=== PATIENT | female | born 1960 | race Caucasian/White ===

== ENCOUNTER 2023-05-12 01:29 | Inpatient (IN) | payer OTHER, SELFPAY ==
[2023-05-12] VITALS (8 sets, daily range): BP systolic 108–132; BP diastolic 67–81; PULSE 63–82; RESP 15–16; TEMP 36.4–36.9; O2SAT 99–100; BMI 17.0
--- NOTE | ~2023-05-12 | XR_ITS ---
EXAMINATION: XR sm bowel follow through WS DATE: 05/12/2023 10:57 INDICATION: Crohn's disease presenting with 2 short segments of enteroenteric intussusception in the left upper quadrant TECHNIQUE: Scrap Preparation Supervisor radiograph(s) of the abdomen was/were obtained. Water-soluble oral contrast was admi nistered, and sequential radiographs of the abdomen were obtained until oral contrast was noted to be in the proximal colon. Spot fluoroscopic images of the small bowel were obtained. Fluoroscopy exposu re time was 1.0 minutes. A total of 5 overhead radiographs and 16 fluoroscopic images were recorded. Total DAP was 15.405 Gycm^2 COMPARISON: None. FINDINGS: Scrap Preparation Supervisor radiograph demonstrates no dilated loops of gas-filled bowel to suggest obstruction. There is e xcreted contrast within the bladder likely related to reported earlier outside institution CT study. Transit time from the stomach to proximal colon was between 60-90 minutes. There is normal caliber an d mucosal fold pattern throughout the small bowel. No evident small bowel intussusception. Terminal i leum is unremarkable. No tethering or abnormal mass effect observed upon the small bowel with real-t aundrea fluoroscopy. IMPRESSION: 1. Normal small bowel follow-through with no evident small bowel intussusception or obstruction. Reviewed, dictated and finalized at location A. ATOLOGY TEACHER IMPRESSION: 1. Normal small bowel follow-through with no evident small bowel intussusceptio n or obstruction.
--- NOTE | ~2023-05-12 | CT_ITS ---
EXAMINATION: CT abdomen pelvis w con INDICATION: Outside hospital CT demonstrating intussusception TECHNIQUE: Computed tomographic images of the abdomen and pelvis were obtained after the administrati on of 99 cc of Omnipaque 350 intravenous contrast. The dose-length product (DLP) was 259.47 mGy-cm. A utomated exposure control and iterative reconstruction technique were employed. COMPARISON: Outside hospital CT dated 05/11/2023 FINDINGS: Minimal dependent atelectasis is present in the lung bases. The heart size is normal. There is an 8 mm cyst in the left hepatic lobe. The spleen, pancreas, and adrenal glands are normal. Hyper density in the otherwise normal gallbladder is consistent with excreted contrast from recent CT. Hypo attenuating lesions in the kidneys, measuring up to 4 mm on the right, are too small to characterize but likely represent cysts. There is calcified atherosclerosis of the aorta and many of the other art eries. No pathologically enlarged abdominal or pelvic lymph nodes are identified. No free intraperito deann gas or evidence of bowel obstruction. There is a small volume of pelvic ascites. Enteric contras t from yesterday's small bowel follow-through is noted in the colon. There are no dilated loops of cj wel. No persistent intussusception is identified. There is wall thickening of the terminal ileum Ther e is severe lumbar spondylosis. IMPRESSION: 1. No persistent intussusception identified. No obstruction 2. Wall thickening of the terminal ileum, consistent with terminal ileitis. 3. Small volume of pelvic ascites. Reviewed, dictated and finalized at location A. ET TURNER
--- NOTE | 2023-05-12 00:49 | ADMGEN ---
This patient, Nicolle Jones, was admitted to 2 Medical Room 260-01. Patient/family oriented to hospital policies and general routines including ID bracelet, bed and alarms, visiting hours, pain management, procedures, bathroom and other care routines, personal items, smoking policy, room service/diet, and visiting hours. Information on how to activate the Rapid Response Team has been discussed. Patient/Family are encouraged to report perceived risks to care and to ask questions if they do not understand what they are told or what they should do.
--- NOTE | 2023-05-12 01:06 | PM.IMHP ---
H&P: HPI History of Present Illness Date/Time: 05/12/23 01:06 Chief Complaint: Patient transferred from [facility] emergency room with enteroenteric intussusception in the left upper quadrant Narrative: She is a pleasant lady who is complaining of severe abdominal pain for the last 36 hours, that started at 4:00 p.m. on 05/10/2023. She rates the pain as 10/10 associated with nausea vomiting and diarrhea. She says that she cannot even take water down not to mention any food! She has history of stomach issues in the past and was told this is because of for anxiety. There are times where she goes days without eating because she feels that she can not, but at no point she had pain as worse as this one! Workup was done in the ER which showed 2 short segments of enteroenteric intussusception in the left upper quadrant and findings consistent with a chronic inflammatory bowel disease such as Crohn's Disease. General surgery was the consulted by the transferring ER, who accepted the patient as direct admit to evaluate in the morning for possible surgical intervention in OR. Review of Systems Review of Systems: She denies any chest pain, palpitations, loss of consciousness. Please see H&P as above All systems reviewed & are unremarkable except as noted in HPI and below PMFSH Past Medical History Medical History History of follicular lymphoma 2009 Surgical History Surgical History History of appendectomy History of section Family History Family History Father Hypertension Heart disease Diabetes mellitus Mother Depression Heart disease Thyroid disorder Hypertension Sibling Depression Thyroid disorder Social History Social History Years smoked: 40 Smoking status: Former smoker Second hand tobacco smoke exposure: No Smoking end date: 06/19/19 Alcohol intake: current Drinks per week: 4 Substance use: current Substance use type: marijuana Other substance usage details: daily use Last use: 05/11/23 Lack of Transportation: No Lack of Food: Never True Current Housing: I Have Housing Concerned About Future Housing: No Difficulty Paying Gas/Electric Bills: YES Difficulty Paying for Meds: No Currently Unemployed: No Education: High School Diploma/GED Difficulty w/ Childcare or Family Care: No Living arrangements: with family Occupation/Education: unemployed Gender identity (if verbalized by the patient): Female Sexual Orientation (if Verbalized by the Patient): Straight or Heterosexual Spiritual care concerns: No Agree to blood products: Yes Meds Home Medications and Allergies Home Medications Medication Instructions Recorded Confirmed Type buspirone 10 mg tablet 10 mg PO BID #60 tabs 10/26/22 05/12/23 Rx medroxyprogesterone 2.5 mg tablet 2.5 mg PO DAILY #90 tabs 10/26/22 05/12/23 Rx estradiol 1 mg tablet 1 mg PO DAILY #90 tabs 12/13/22 05/12/23 Rx bupropion HCl 200 mg tablet,12 hr 200 mg PO BID #180 tabs 01/02/23 05/12/23 Rx sustained-release (Wellbutrin SR) pantoprazole 40 mg tablet,delayed 40 mg PO BID #180 tabs 01/05/23 05/12/23 Rx release pentazocine 50 mg-naloxone 0.5 mg 1 tablet PO Q4-6H PRN pain #120 01/11/23 05/12/23 Rx tablet tabs cyclobenzaprine 10 mg tablet 10 mg PO TID PRN muscle spasm #60 01/26/23 05/12/23 Rx tabs lorazepam 0.5 mg tablet 0.5 mg PO BID PRN anxiety #60 tabs 02/02/23 05/12/23 Rx indomethacin 50 mg capsule 50 mg PO TID #270 caps 02/06/23 05/12/23 Rx topiramate 50 mg tablet 25 mg PO BID #30 tabs 02/22/23 05/12/23 Rx ondansetron 4 mg disintegrating 4 mg PO Q6H PRN nausea and 03/15/23 05/12/23 Rx tablet vomiting #270 tabs butorphanol 10 mg/mL nasal spray 1 spray intranasal TID PRN pain #5 04/21/2305/12
[2023-05-12] MEDS: HYDROmorphone HCL INJ (*CRX) 1 MG/ML SYR 0.5 MG IV PUSH ×5 (02:04→20:33)
[2023-05-12] MEDS: DEXTROSE 5%/0.45% SOD CHL 1,000 ML 100 ML IV CONT ×2 (02:04→12:32)
--- NOTE | 2023-05-12 04:06 | PHAR ---
HOME MED VERIFIED TRAZODONE 150MG HS
[2023-05-12] MEDS: PIPERACILLIN/TAZ 2.25G/NS 50ML 2.25 GM/50 ML BAG IVPB ×2 (05:31→11:03)
[2023-05-12 06:11] LABS: Basophils Absolute Auto 0.1 K/mm3 (0.0-0.1); Basophils Percent Auto 0.7 % (0.2-1.2); Eosinophils Absolute Auto 0.1 K/mm3 (0-0.3); Eosinophils Percent Auto 1.9 % (0-4.4); Hematocrit 33.3 % (37.0-47.0); Hemoglobin 10.7 g/dL (12.0-15.0); Immature Granulocyte Absolute 0.02 K/mm3 (0.00-0.031); Immature Granulocyte Percent A 0.3 % (0-0.5); Lymphocytes Absolute Auto 3.04 K/mm3 (0.9-3.2); Lymphocytes Percent Auto 42.3 % (18.3-44.2); Mean Corpuscular HGB Conc 32.1 g/dl (32-36); Mean Corpuscular Hemoglobin 32.5 pg (26-34); Mean Corpuscular Volume 101.2 fl (80-100); Monocytes Absolute Auto 0.6 K/mm3 (0.1-0.6); Monocytes Percent Auto 8.6 % (2.6-8.5); Neutrophils Absolute Auto 3.3 K/mm3 (1.3-6.7); Neutrophils Percent Auto 46.2 % (45.5-73.1); Platelet Count Result 205 k/mm3 (150-375); Red Blood Count 3.29 M/mm3 (4.2-5.4); Red Cell Distribution Width 14.2 % (11.5-14.5); White Blood Count 7.2 K/mm3 (4.5-10.0)
[2023-05-12 06:25] LABS: Alanine Aminotransferase 12 U/L (6-35); Albumin Level 3.2 g/dL (3.5-5.1); Alkaline Phosphatase 44 U/L (38-126); Anion Gap 5 mmol/L (8-16); Aspartate Amino Transferase 24 U/L (14-36); Bilirubin,Total 0.5 mg/dL (0.2-1.3); Blood Urea Nitrogen 8 mg/dL (7-17); Calcium 7.8 mg/dL (8.4-10.2); Carbon Dioxide 26 mmol/L (22-30); Chloride 109 mmol/L (98-107); Estimated CRCL calculation 39 ml/min; Estimated Glomerular Filt Rate > 60; Glucose 72 mg/dL (65-110); Magnesium 1.8 mg/dL (1.6-2.3); Phosphorus 3.4 mg/dL (2.5-4.5); Potassium 3.7 mmol/L (3.4-5.0); Sodium 140 mmol/L (137-145)
--- NOTE | 2023-05-12 08:05 | WPDGICN ---
Assessment and Plan Assessment and plan (1) Intussusception of jejunum: Code(s): K56.1 - Intussusception Status: Acute Assessment and Plan: noted CT scan pain has improved today surgery will assess patient CT scan raising possibility of Crohn's, she has been diagnosed with IBS but never had symptoms like this. Will need to get colonoscopy but after symptomatically better, in the meantime will get crp, esr and stool calprotectin, also stool studies (h/o diarrhea) will get SBFT no GI coverage this weekend, will be back Monday (2) Sudden onset of severe abdominal pain: Code(s): R10.9 - Unspecified abdominal pain Status: Acute Assessment and Plan: improved npo surgery to assess (3) Nausea vomiting and diarrhea: Code(s): R11.2 - Nausea with vomiting, unspecified; R19.7 - Diarrhea, unspecified Status: Acute (4) Abnormal CT scan, small bowel: Code(s): R93.3 - Abnormal findings on diagnostic imaging of other parts of digestive tract Status: Acute Assessment and Plan: colonoscopy in near future GI Consult Note Consult date/time: 05/12/23 08:05 Reason for consult: n/v, diarrhea, abdominal pain, abnormal SB in CT scan HPI: Nicolle Jones is a 63 year old female with history of anxiety and possible IBS - says that PCP started on psych meds for anxiety and after having upset stomach, possible IBS with history of constipation and loose stools - remembers having normal EGD but never had colonoscopy. She is here with new onset of severe abdominal pain started about 2 days ago, pain was 10/10? associated with nausea vomiting and diarrhea, yesterday had 4 loose stools. She went to another ER, CT scan reviewed and showed mode circumferential bowel thickening of small and large bowel with some interval sparing ? Crohn's, also short segments of enteroenteric intussusception in the left upper quadrant. No BM since yesterday, no more emesis and overall feeling better. Today with headache (it is not unusual for her), labs normal liver enzymes, normal h/h and platelets, wbc 12k, received abx. No sick contact. Review of Systems Constitutional: Constitutional: Denies chills Eyes: Eyes: Denies blurry vision ENT: Reports Normal hearing present Cardiovascular: Cardiovascular: Denies chest pain Respiratory: Respiratory: Denies cough Gastrointestinal: Gastrointestinal: Reports abdominal pain, Reports diarrhea, Reports nausea and Reports vomiting Genitourinary: Genitourinary: Denies hematuria Musculoskeletal: Musculoskeletal: Denies neck pain Integumentary/Breasts: Skin/Breast: Denies rash Neurologic: Denies Abnormal speech present Psychiatric: Psychiatric: Denies confusion [facility] Past Medical History Medical History (Updated 05/12/23 @ 08:11 by Antony Penaloza MD) Abnormal CT scan, small bowel History of follicular lymphoma 2010 Surgical History Surgical History History of appendectomy History of section Family History Family History Father Hypertension Heart disease Diabetes mellitus Mother Depression Heart disease Thyroid disorder Hypertension Sibling Depression Thyroid disorder Social History Social History Years smoked: 40 Smoking status: Former smoker Second hand tobacco smoke exposure: No Smoking end date: 06/19/19 Alcohol intake: current Drinks per week: 4 Substance use: current Substance use type: marijuana Other substance usage details: daily use Last use: 05/11/23 Lack of Transportation: No Lack of Food: Never True Current Housing: I Have Housing Concerned About Future Housing: No Difficulty Paying Gas/Electric Bills: YES Difficulty Paying for Meds: No Currently Unemployed: No Education: High School Diploma/GED
[2023-05-12] MEDS: ONDANSETRON INJ 4 MG/2 ML VIAL IV PUSH ×2 (09:43→20:33)
[2023-05-12 11:39] LABS: Appearance Urine Clear (Clear); Bacteria Urine None Seen /hpf; Bilirubin Urine Negative (Negative); Blood Urine Negative (Negative); Color Urine Yellow (Yellow); Glucose Urine UA Negative (Negative); Ketones Urine Negative (Negative); Leukocyte Esterase Ur 1+ LEU/UL (NEGATIVE); Need Manual Microscopic Reviewed; Nitrate Urine Positive (Negative); Non Pathogenic Casts 0-2; Protein Urine Negative (Negative); RBC Urine 0-2 /hpf (0-2); Squamous Epithelial Cell Urine None seen /hpf (Few); Urobilinogen Urine 0.2 mg/dL (<2.0)
[2023-05-12 11:40] LABS: Add Urine Microscopic? YES
[2023-05-12 13:31] LABS: Toxigenic C. Diff NEGATIVE (NEGATIVE)
--- NOTE | 2023-05-12 15:46 | PM.CNGS ---
Assessment and Plan Assessment and plan (1) Sudden onset of severe abdominal pain: Code(s): R10.9 - Unspecified abdominal pain Status: Acute Assessment and Plan: Much improved and patient wanting to take some soft food. She still is taking some hydromorphone as well. I advised her to avoid this and try taking Tylenol or ibuprofen. CT scan outside hospital suggested small-bowel intussusception as well as distal ileal and proximal colonic inflammatory change with skip areas suggestive of Crohn's disease. Small-bowel follow-through today was normal. Will plan on getting follow-up CT scan with contrast again tomorrow. (2) Abnormal CT scan, small bowel: Code(s): R93.3 - Abnormal findings on diagnostic imaging of other parts of digestive tract Status: Acute Assessment and Plan: See above. Suggests intussusception and Crohn's disease. Dr. Underwood recommends outpatient colonoscopy. She has had an EGD fairly recently. (3) Generalized anxiety disorder: Code(s): F41.1 - Generalized anxiety disorder Status: Chronic Assessment and Plan: Continue home medication (4) Major depressive disorder, recurrent, moderate: Code(s): F33.1 - Major depressive disorder, recurrent, moderate Status: Chronic Assessment and Plan: Continue home medications History of Present Illness Consult details Consult date: 05/12/23 (Patient seen about 3:00 p.m. on 05/12/2023.) Reason for consult: abdominal pain (CT scan outside hospital suggested circumferential inflammation of distal small bowel and proximal colon with skip areas, couple of areas of small intestinal intussusception were also seen. Patient transferred here from outside hospital ER due to severe abdominal pain and no general surgery OSH.) Requesting physician: Dain Renteria MD Narrative: Patient is a 63-year-old woman who has had episodes of abdominal pain for quite some time. She has been told that she has irritable bowel syndrome. She does note that she has had alternating constipation and diarrhea for quite some time too. About 4:00 p.m. on , 05/10/2023, she began experiencing upper abdominal pain. This became worse and moved to the right lower quadrant. She did have some vomiting with this. Eventually the pain was excruciating and she could not keep any thing down. She went to the emergency room in [place]. [place] was [place] [id number]. She was having severe abdominal pain and vomiting. Her exam showed right upper quadrant and epigastric tenderness. Her CT scan was suspicious for distal ileal and possibly colonic Crohn's disease. It was also noted that she had a couple areas in the mid jejunum where intussusception was noted. Her gallbladder was distended but was not consistent with cholecystitis. She transferred to [facility] and received IV fluids and hydromorphone for pain medicine. Her pain markedly improved and by this morning it was much better. Her white blood cell count improved and was only 7000 this morning. She was seen by Dr. Underwood, car spotter, and a water-soluble small bowel follow-through was ordered. Clostridium difficile toxin titer was ordered and was negative. Some markers of inflammation were ordered as well and are pending. She went on to have the small-bowel series today. This was normal. There was transit into the colon by 90 minutes. There was no small bowel dilatation. No sign of obstruction or intussusception was seen. She tells me this afternoon that she is feeling much better but is still taking some hydromorphone p.r.n. for pain of the abdomen. She is seen now in consultation. She has already tried some liquids but did not like the taste. She would like to try soft food. Review of Systems Review of Systems: All systems reviewed & are unremarkable except as noted in HPI and below (HPI and those items noted below) Joseluis
[2023-05-12] MEDS: INDOMETHACIN 25 MG CAPSULE 50 MG PO (17:20)
[2023-05-12] MEDS: busPIRone HCL 10 MG TABLET PO (17:20)
--- NOTE | 2023-05-12 18:44 | PM.IMPN ---
Progress Note: A&P Assessment and Plan (1) Abnormal CT scan, small bowel: Code(s): R93.3 - Abnormal findings on diagnostic imaging of other parts of digestive tract Status: Acute (2) Intussusception of jejunum: Code(s): K56.1 - Intussusception Status: Acute (3) Sudden onset of severe abdominal pain: Code(s): R10.9 - Unspecified abdominal pain Status: Acute (4) Nausea vomiting and diarrhea: Code(s): R11.2 - Nausea with vomiting, unspecified; R19.7 - Diarrhea, unspecified Status: Acute (5) Abnormal computed tomography angiography (CTA) of abdomen: Code(s): R93.5 - Abnormal findings on diagnostic imaging of other abdominal regions, including retroperitoneum Status: Acute (6) Chronic inflammatory small bowel disease: Code(s): K52.9 - Noninfective gastroenteritis and colitis, unspecified Status: Acute (7) Leukocytosis: Code(s): D72.829 - Elevated white blood cell count, unspecified Status: Acute (8) Generalized anxiety disorder: Code(s): F41.1 - Generalized anxiety disorder Status: Chronic (9) Gastro-esophageal reflux disease without esophagitis: Code(s): K21.9 - Gastro-esophageal reflux disease without esophagitis Status: Acute (10) Major depressive disorder, recurrent, moderate: Code(s): F33.1 - Major depressive disorder, recurrent, moderate Status: Chronic Plan 1. Intussusception Resolved. Appreciate general surgery consultation from Dr. Arvizu and GI consultation from Dr. Underwood small bowel xr follow through negative for obstruction ctap with contrast for keerthi. am (presumably po contrast as well)- pt is npo for this pt now tolerating low fiber low residue diet potential for dc after study if negative zosyn has been discontinued 2. IBD vs irritable bowel disease vs infectious colitis Appreciate workup from GI f/u stool calprotectin, stool cx, c diff, crp/esr f/u ct ap with con tomorrow colonoscopy in near future per GI ct prn pain meds for abd pain potentially can f/u outpt for studies. If no GI coverage over the weekend, should f/u outpt if symptomatically better. 3. Electrolyte abnormalities ca gluconate for ca repletion Resume home meds after CT AP study and/or after consultation with GI and general surgery Time Spent With Patient Time: 45 min Subjective Date/time seen: 05/12/23 18:44 Interval history: pt upset that nothing has been explained to her. otherwise says pain has mostly resolved. Exam Const: General: cooperative, comfortable, no acute distress, alert, awake and tired appearing Nutritional Appearance: underweight Orientation/consciousness: patient oriented x3 and No confusion HENMT: Head: normocephalic and atraumatic Mouth: Yes Normal oral and palatal mucosa present Eyes: Conjunctivae: conjunctivae normal Pupils: Equal, round and reactive pupils present EOM: EOMs intact bilaterally Neck: Neck: normal visual inspection, no lymphadenopathy and nontender Resp: Effort & Inspection: normal respiratory effort Auscultation: clear to auscultation bilaterally Cardio: Rate: regular rate Rhythm: regular rhythm Heart sounds: no gallops, no murmurs and no rubs GI: Inspection: non-distended, scaphoid and scar GI Palp: Yes Soft to palpation, Yes Tenderness to palpation present (GI) (Minimal tenderness, mostly lower abdomen.), No Guarding due to palpation present (GI), No Hepatosplenomegaly present, No Hepatomegaly present, No Splenomegaly present, No Hernia present, No Palpable mass present and No Rebound tenderness present Auscultation: normoactive bowel sounds Skin: Lesions: no lesions Rashes: no rashes Neuro: General: no focal motor deficits and CN's II-XI intact bilaterally Cranial nerves: Yes Equal, round and reactive pupils present, Yes Bilaterally intact EOM present, Yes facial symmetry and Yes Midline tongue present Speech: normal speech Motor exam (neuro): 55
[2023-05-12] MEDS: CALCIUM GLUC 2,000 MG/NS 100ML 2,000 MG/100 ML BAG 100 MG IVPB (18:51)
[2023-05-12] MEDS: traZODone HCL 50 MG TABLET 150 MG PO (20:33)
[2023-05-12] MEDS: buPROPion HCL SR (12HR) 100 MG TABCR 200 MG PO (20:33)
[2023-05-12] MEDS: TOPIRAMATE 25 MG TABLET PO (20:34)
[2023-05-12] MEDS: PANTOPRAZOLE 40 MG TABLET PO (20:34)
[2023-05-13] VITALS (9 sets, daily range): BP systolic 125–154; BP diastolic 70–88; PULSE 59–72; RESP 14–16; TEMP 36.2–36.7; O2SAT 100
[2023-05-13] MEDS: ONDANSETRON INJ 4 MG/2 ML VIAL IV PUSH ×2 (02:42→13:27)
[2023-05-13] MEDS: DEXTROSE 5%/0.45% SOD CHL 1,000 ML 100 ML IV CONT ×2 (02:42→12:20)
[2023-05-13] MEDS: LEVOTHYROXINE SODIUM 125 MCG TABLET PO (05:58)
[2023-05-13 06:13] LABS: Basophils Percent Auto 0.7 % (0.2-1.2); Eosinophils Absolute Auto 0.1 K/mm3 (0-0.3); Eosinophils Percent Auto 2.3 % (0-4.4); Hematocrit 30.4 % (37.0-47.0); Immature Granulocyte Absolute 0.01 K/mm3 (0.00-0.031); Immature Granulocyte Percent A 0.2 % (0-0.5); Lymphocytes Absolute Auto 2.13 K/mm3 (0.9-3.2); Lymphocytes Percent Auto 37.4 % (18.3-44.2); Mean Corpuscular HGB Conc 32.9 g/dl (32-36); Mean Corpuscular Hemoglobin 32.1 pg (26-34); Mean Corpuscular Volume 97.4 fl (80-100); Monocytes Absolute Auto 0.5 K/mm3 (0.1-0.6); Monocytes Percent Auto 7.9 % (2.6-8.5); Neutrophils Absolute Auto 2.9 K/mm3 (1.3-6.7); Neutrophils Percent Auto 51.5 % (45.5-73.1); Platelet Count Result 190 k/mm3 (150-375); Red Blood Count 3.12 M/mm3 (4.2-5.4); Red Cell Distribution Width 13.6 % (11.5-14.5); White Blood Count 5.7 K/mm3 (4.5-10.0)
[2023-05-13 06:23] LABS: Anion Gap 5 mmol/L (8-16); Blood Urea Nitrogen 3 mg/dL (7-17); CRP 3.6 mg/dL (<1.0); Calcium 8.5 mg/dL (8.4-10.2); Carbon Dioxide 24 mmol/L (22-30); Chloride 110 mmol/L (98-107); Estimated CRCL calculation 50 ml/min; Estimated Glomerular Filt Rate > 60; Glucose 101 mg/dL (65-110); Potassium 3.3 mmol/L (3.4-5.0); Sodium 139 mmol/L (137-145)
[2023-05-13 07:15] LABS: Erythrocyte Sedimentation Rate 18 mm/hr (0-20)
[2023-05-13] MEDS: MIRTAZAPINE 30 MG TABLET PO (08:20)
[2023-05-13] MEDS: INDOMETHACIN 25 MG CAPSULE 50 MG PO ×3 (08:20→17:05)
[2023-05-13] MEDS: PANTOPRAZOLE 40 MG TABLET PO ×2 (08:21→20:30)
[2023-05-13] MEDS: TOPIRAMATE 25 MG TABLET PO ×2 (08:21→20:30)
[2023-05-13] MEDS: buPROPion HCL SR (12HR) 100 MG TABCR 200 MG PO ×2 (08:21→20:30)
[2023-05-13] MEDS: estradioL 1 MG TABLET PO (08:21)
[2023-05-13] MEDS: busPIRone HCL 10 MG TABLET PO ×2 (08:21→17:05)
[2023-05-13] MEDS: HYDROmorphone HCL INJ (*CRX) 1 MG/ML SYR 0.5 MG IV PUSH ×2 (13:27→18:15)
--- NOTE | 2023-05-13 17:49 | PM.IMPN ---
Progress Note: A&P Assessment and Plan (1) Abnormal CT scan, small bowel: Code(s): R93.3 - Abnormal findings on diagnostic imaging of other parts of digestive tract Status: Acute (2) Intussusception of jejunum: Code(s): K56.1 - Intussusception Status: Acute (3) Sudden onset of severe abdominal pain: Code(s): R10.9 - Unspecified abdominal pain Status: Acute (4) Nausea vomiting and diarrhea: Code(s): R11.2 - Nausea with vomiting, unspecified; R19.7 - Diarrhea, unspecified Status: Acute (5) Abnormal computed tomography angiography (CTA) of abdomen: Code(s): R93.5 - Abnormal findings on diagnostic imaging of other abdominal regions, including retroperitoneum Status: Acute (6) Chronic inflammatory small bowel disease: Code(s): K52.9 - Noninfective gastroenteritis and colitis, unspecified Status: Acute (7) Leukocytosis: Code(s): D72.829 - Elevated white blood cell count, unspecified Status: Acute (8) Generalized anxiety disorder: Code(s): F41.1 - Generalized anxiety disorder Status: Chronic (9) Gastro-esophageal reflux disease without esophagitis: Code(s): K21.9 - Gastro-esophageal reflux disease without esophagitis Status: Acute (10) Major depressive disorder, recurrent, moderate: Code(s): F33.1 - Major depressive disorder, recurrent, moderate Status: Chronic Plan 1. Intussusception Resolved. Appreciate general surgery consultation from Dr. Arvizu and GI consultation from Dr. Underwood small bowel xr follow through negative for obstruction ctap with contrast for keerthi. am (presumably po contrast as well)- pt is npo for this pt now tolerating low fiber low residue diet potential for dc after study if negative zosyn has been discontinued 2. IBD vs irritable bowel disease vs infectious colitis Appreciate workup from GI f/u stool calprotectin, stool cx, c diff, crp/esr f/u ct ap with con tomorrow colonoscopy in near future per GI ct prn pain meds for abd pain potentially can f/u outpt for studies. If no GI coverage over the weekend, should f/u outpt if symptomatically better. 05/13: Terminal ileitis seen on CT a/p. Discussed pt with Dr. Arvizu from general surgery. He recommends pt is seen by GI on Monday. I will make pt npo on Monday in case she has a colonoscopy with biopsy on Monday. Ct iv dilaudid for abd pain. I let pt know she cannot go home on this. 3. Electrolyte abnormalities ca gluconate for ca repletion Resume home meds after CT AP study and/or after consultation with GI and general surgery Time Spent With Patient Time: 45 min Subjective Date/time seen: 05/13/23 17:49 Interval history: pt is complaining of abd pain, and dark colored stool despite not eating anything. requesting iv dilaudid for abd pain. Exam Const: General: cooperative, comfortable, no acute distress, alert, awake and tired appearing Nutritional Appearance: underweight Orientation/consciousness: patient oriented x3 and No confusion HENMT: Head: normocephalic and atraumatic Mouth: Yes Normal oral and palatal mucosa present Eyes: Conjunctivae: conjunctivae normal Pupils: Equal, round and reactive pupils present EOM: EOMs intact bilaterally Neck: Neck: normal visual inspection, no lymphadenopathy and nontender Resp: Effort & Inspection: normal respiratory effort Auscultation: clear to auscultation bilaterally Cardio: Rate: regular rate Rhythm: regular rhythm Heart sounds: no gallops, no murmurs and no rubs GI: Inspection: non-distended, scaphoid and scar GI Palp: Yes Soft to palpation, Yes Tenderness to palpation present (GI) (Minimal tenderness, mostly lower abdomen.), No Guarding due to palpation present (GI), No Hepatosplenomegaly present, No Hepatomegaly present, No Splenomegaly present, No Hernia present, No Palpable mass present and No Rebound tenderness present Auscultation: normoactive bowel sounds Skin:
[2023-05-13] MEDS: POTASSIUM CHLORIDE 20 MEQ ER TABLET 40 MEQ PO (18:10)
[2023-05-13] MEDS: MAGNESIUM SULF 1 GM/D5W 100 ML 1 GM/100 ML BAG IVPB (18:10)
[2023-05-13] MEDS: traZODone HCL 50 MG TABLET 150 MG PO (20:30)
[2023-05-14] VITALS (8 sets, daily range): BP systolic 108–158; BP diastolic 68–87; PULSE 57–100; RESP 16–18; TEMP 36.3–37; O2SAT 98–100
[2023-05-14] MEDS: ONDANSETRON INJ 4 MG/2 ML VIAL IV PUSH ×3 (02:49→23:23)
[2023-05-14] MEDS: HYDROmorphone HCL INJ (*CRX) 1 MG/ML SYR 0.5 MG IV PUSH ×2 (02:50→14:16)
[2023-05-14] MEDS: LEVOTHYROXINE SODIUM 125 MCG TABLET PO (06:35)
[2023-05-14 06:54] LABS: Basophils Percent Auto 0.6 % (0.2-1.2); Eosinophils Absolute Auto 0.2 K/mm3 (0-0.3); Eosinophils Percent Auto 2.9 % (0-4.4); Hematocrit 31.4 % (37.0-47.0); Hemoglobin 10.5 g/dL (12.0-15.0); Immature Granulocyte Absolute 0.01 K/mm3 (0.00-0.031); Immature Granulocyte Percent A 0.2 % (0-0.5); Lymphocytes Absolute Auto 2.46 K/mm3 (0.9-3.2); Lymphocytes Percent Auto 48.1 % (18.3-44.2); Mean Corpuscular HGB Conc 33.4 g/dl (32-36); Mean Corpuscular Hemoglobin 32.3 pg (26-34); Mean Corpuscular Volume 96.6 fl (80-100); Mean Platelet Volume 9.9 fl (7.4-10.4); Monocytes Absolute Auto 0.4 K/mm3 (0.1-0.6); Neutrophils Absolute Auto 2.1 K/mm3 (1.3-6.7); Neutrophils Percent Auto 40.2 % (45.5-73.1); Platelet Count Result 209 k/mm3 (150-375); Red Blood Count 3.25 M/mm3 (4.2-5.4); Red Cell Distribution Width 13.2 % (11.5-14.5); White Blood Count 5.1 K/mm3 (4.5-10.0)
[2023-05-14 07:03] LABS: Anion Gap 6 mmol/L (8-16); Blood Urea Nitrogen 2 mg/dL (7-17); Calcium 8.6 mg/dL (8.4-10.2); Carbon Dioxide 26 mmol/L (22-30); Chloride 109 mmol/L (98-107); Estimated CRCL calculation 50 ml/min; Estimated Glomerular Filt Rate > 60; Glucose 80 mg/dL (65-110); Magnesium 1.8 mg/dL (1.6-2.3); Potassium 3.7 mmol/L (3.4-5.0); Sodium 141 mmol/L (137-145)
[2023-05-14] MEDS: TOPIRAMATE 25 MG TABLET PO ×2 (09:08→20:36)
[2023-05-14] MEDS: INDOMETHACIN 25 MG CAPSULE 50 MG PO ×3 (09:08→17:06)
[2023-05-14] MEDS: busPIRone HCL 10 MG TABLET PO ×2 (09:08→17:07)
[2023-05-14] MEDS: PANTOPRAZOLE 40 MG TABLET PO ×2 (09:08→20:36)
[2023-05-14] MEDS: buPROPion HCL SR (12HR) 100 MG TABCR 200 MG PO ×2 (09:08→20:36)
[2023-05-14] MEDS: estradioL 1 MG TABLET PO (09:08)
[2023-05-14] MEDS: MIRTAZAPINE 30 MG TABLET PO (09:08)
[2023-05-14] MEDS: CYCLOBENZAPRINE HCL 10 MG TABLET PO (12:45)
--- NOTE | 2023-05-14 13:29 | PM.IMPN ---
Progress Note: A&P Assessment and Plan (1) Abnormal CT scan, small bowel: Code(s): R93.3 - Abnormal findings on diagnostic imaging of other parts of digestive tract Status: Acute (2) Intussusception of jejunum: Code(s): K56.1 - Intussusception Status: Acute (3) Sudden onset of severe abdominal pain: Code(s): R10.9 - Unspecified abdominal pain Status: Acute (4) Nausea vomiting and diarrhea: Code(s): R11.2 - Nausea with vomiting, unspecified; R19.7 - Diarrhea, unspecified Status: Acute (5) Abnormal computed tomography angiography (CTA) of abdomen: Code(s): R93.5 - Abnormal findings on diagnostic imaging of other abdominal regions, including retroperitoneum Status: Acute (6) Chronic inflammatory small bowel disease: Code(s): K52.9 - Noninfective gastroenteritis and colitis, unspecified Status: Acute (7) Leukocytosis: Code(s): D72.829 - Elevated white blood cell count, unspecified Status: Acute (8) Generalized anxiety disorder: Code(s): F41.1 - Generalized anxiety disorder Status: Chronic (9) Gastro-esophageal reflux disease without esophagitis: Code(s): K21.9 - Gastro-esophageal reflux disease without esophagitis Status: Acute (10) Major depressive disorder, recurrent, moderate: Code(s): F33.1 - Major depressive disorder, recurrent, moderate Status: Chronic Plan 1. Intussusception Resolved. Appreciate general surgery consultation from Dr. Arvizu and GI consultation from Dr. Underwood small bowel xr follow through negative for obstruction ctap with contrast for keerthi. am (presumably po contrast as well)- pt is npo for this pt now tolerating low fiber low residue diet potential for dc after study if negative zosyn has been discontinued 2. IBD vs irritable bowel disease vs infectious colitis Appreciate workup from GI f/u stool calprotectin, stool cx, c diff, crp/esr f/u ct ap with con tomorrow colonoscopy in near future per GI ct prn pain meds for abd pain potentially can f/u outpt for studies. If no GI coverage over the weekend, should f/u outpt if symptomatically better. 05/13: Terminal ileitis seen on CT a/p. Discussed pt with Dr. Arvizu from general surgery. He recommends pt is seen by GI on Monday. I will make pt npo on Monday in case she has a colonoscopy with biopsy on Monday. Ct iv dilaudid for abd pain. I let pt know she cannot go home on this. 3. Electrolyte abnormalities ca gluconate for ca repletion Resume home meds after CT AP study and/or after consultation with GI and general surgery Time Spent With Patient Time: 30 min Subjective Date/time seen: 05/14/23 13:29 Interval history: some mild abd pain. minimal dark stools. eating more FLD diet. did not tolerate solid diet well. requesting PO ativan for prn anxiety- takes this at home, 0.5 mg as needed. Exam Const: General: cooperative, comfortable, no acute distress, alert, awake and tired appearing Nutritional Appearance: underweight Orientation/consciousness: patient oriented x3 and No confusion HENMT: Head: normocephalic and atraumatic Mouth: Yes Normal oral and palatal mucosa present Eyes: Conjunctivae: conjunctivae normal Pupils: Equal, round and reactive pupils present EOM: EOMs intact bilaterally Neck: Neck: normal visual inspection, no lymphadenopathy and nontender Resp: Effort & Inspection: normal respiratory effort Auscultation: clear to auscultation bilaterally Cardio: Rate: regular rate Rhythm: regular rhythm Heart sounds: no gallops, no murmurs and no rubs GI: Inspection: non-distended, scaphoid and scar GI Palp: Yes Soft to palpation, Yes Tenderness to palpation present (GI) (Minimal tenderness, mostly lower abdomen.), No Guarding due to palpation present (GI), No Hepatosplenomegaly present, No Hepatomegaly present, No Splenomegaly present, No Hernia present, No Palpable mass present and No Rebound tenderness pr
[2023-05-14] MEDS: traZODone HCL 50 MG TABLET 150 MG PO (20:36)
[2023-05-15] VITALS: BP 149/85; PULSE 62; RESP 18; TEMP 36.5; O2SAT 98
[2023-05-15 04:00] VITALS: BP 115/70; PULSE 62; RESP 18; TEMP 36.1; O2SAT 97
[2023-05-15 06:09] LABS: Basophils Percent Auto 0.7 % (0.2-1.2); Eosinophils Absolute Auto 0.2 K/mm3 (0-0.3); Eosinophils Percent Auto 2.5 % (0-4.4); Hematocrit 33.2 % (37.0-47.0); Hemoglobin 11.1 g/dL (12.0-15.0); Immature Granulocyte Absolute 0.01 K/mm3 (0.00-0.031); Immature Granulocyte Percent A 0.2 % (0-0.5); Lymphocytes Absolute Auto 2.98 K/mm3 (0.9-3.2); Lymphocytes Percent Auto 48.8 % (18.3-44.2); Mean Corpuscular HGB Conc 33.4 g/dl (32-36); Mean Corpuscular Volume 95.7 fl (80-100); Mean Platelet Volume 9.9 fl (7.4-10.4); Monocytes Absolute Auto 0.5 K/mm3 (0.1-0.6); Monocytes Percent Auto 8.3 % (2.6-8.5); Neutrophils Absolute Auto 2.4 K/mm3 (1.3-6.7); Neutrophils Percent Auto 39.5 % (45.5-73.1); Platelet Count Result 224 k/mm3 (150-375); Red Blood Count 3.47 M/mm3 (4.2-5.4); White Blood Count 6.1 K/mm3 (4.5-10.0)
[2023-05-15] MEDS: LEVOTHYROXINE SODIUM 125 MCG TABLET PO (06:11)
[2023-05-15 06:20] LABS: Anion Gap 5 mmol/L (8-16); Blood Urea Nitrogen 5 mg/dL (7-17); Calcium 8.8 mg/dL (8.4-10.2); Carbon Dioxide 27 mmol/L (22-30); Chloride 109 mmol/L (98-107); Estimated CRCL calculation 36 ml/min; Estimated Glomerular Filt Rate 56; Glucose 76 mg/dL (65-110); Magnesium 1.9 mg/dL (1.6-2.3); Potassium 3.4 mmol/L (3.4-5.0); Sodium 141 mmol/L (137-145)
[2023-05-15] MEDS: HYDROmorphone HCL INJ (*CRX) 1 MG/ML SYR 0.5 MG IV PUSH (07:51)
[2023-05-15] MEDS: ONDANSETRON INJ 4 MG/2 ML VIAL IV PUSH ×3 (07:51→20:35)
[2023-05-15 08:00] VITALS: BP 138/86; PULSE 69; RESP 16; TEMP 37.1; O2SAT 100
[2023-05-15] MEDS: LORazepam (*CRX) 0.5 MG TABLET PO (08:00)
[2023-05-15] MEDS: busPIRone HCL 10 MG TABLET PO ×2 (10:39→17:01)
[2023-05-15] MEDS: buPROPion HCL SR (12HR) 100 MG TABCR 200 MG PO ×2 (10:39→23:34)
[2023-05-15] MEDS: estradioL 1 MG TABLET PO (10:41)
[2023-05-15] MEDS: INDOMETHACIN 25 MG CAPSULE 50 MG PO ×3 (10:41→17:01)
[2023-05-15] MEDS: TOPIRAMATE 25 MG TABLET PO ×2 (10:41→23:35)
[2023-05-15] MEDS: PANTOPRAZOLE 40 MG TABLET PO ×2 (10:42→23:34)
[2023-05-15] MEDS: CYCLOBENZAPRINE HCL 10 MG TABLET PO (10:42)
[2023-05-15 14:00] VITALS: BP 134/82; PULSE 70; RESP 14; TEMP 36.6; O2SAT 100
--- NOTE | 2023-05-15 16:05 | WPDGIPROGNO ---
Progress Note: A&P Assessment and Plan (1) Intussusception of jejunum: Code(s): K56.1 - Intussusception Status: Acute Assessment and Plan: resolved, reviewed SBFT (2) Abnormal CT scan, small bowel: Code(s): R93.3 - Abnormal findings on diagnostic imaging of other parts of digestive tract Status: Acute Assessment and Plan: CT scan reviewed, No persistent intussusception identified. No obstruction but wall thickening of the terminal ileum, consistent with terminal ileitis. she is agreeable to have colonoscopy tomorrow, bowel prep tonight (never had one) had elevated crp (3) Nausea vomiting and diarrhea: Code(s): R11.2 - Nausea with vomiting, unspecified; R19.7 - Diarrhea, unspecified Status: Acute Assessment and Plan: resolved (4) Sudden onset of severe abdominal pain: Code(s): R10.9 - Unspecified abdominal pain Status: Acute Subjective Date/time seen: 05/15/23 16:05 Interval history: overall better, tolerating diet and less pain Review of Systems Review of Systems: All systems reviewed & are unremarkable except as noted in HPI and below Exam Const: General: comfortable and no acute distress HENMT: Face/Nose/Sinus: Normal nares present Eyes: General: appearance normal, both eyes and all related structures Neck: Neck: supple Resp: Auscultation: clear to auscultation bilaterally Cardio: Rate: regular rate Rhythm: regular rhythm GI: Inspection: non-distended GI Palp: Yes Soft to palpation and Yes Tenderness to palpation present (GI) (mild ttp, no rebound) Skin: General skin exam: normal color Neuro: Speech: normal speech Motor exam (neuro): 5/5 motor strength present throughout Extrem: General: normal to inspection Psych: Mental Status: mental status grossly normal Objective Data Vital Signs Vital Signs: Vital Signs - 24 hr 05/14/23 17:22 05/14/23 20:00 05/15/23 00:00 Temperature 97.6 F 98.6 F 97.7 F Pulse Rate 67 60 62 Respiratory Rate 16 18 18 Blood Pressure 143/83 H 157/87 H 149/85 H Pulse Oximetry 100 98 98 Oxygen Delivery 05/15/23 04:00 05/15/23 08:00 05/15/23 08:00 Temperature 96.9 F L 98.7 F Pulse Rate 62 69 Respiratory Rate 18 16 16 Blood Pressure 115/70 138/86 Pulse Oximetry 97 100 100 Oxygen Delivery Room Air 05/15/23 14:00 Temperature 97.9 F Pulse Rate 70 Respiratory Rate 14 Blood Pressure 134/82 Pulse Oximetry 100 Oxygen Delivery Intake/Output Intake/Output: Intake & Output 05/12/23 05/13/23 05/14/23 05/15/23 23:59 23:59 23:59 23:59 Intake Total 2500 2840 710 290 Balance 2500 2840 710 290 Meds/Results Medications: Active Medications Generic Name Dose Route Start Last Admin Trade Name Freq PRN Reason Stop Dose Admin Bisacodyl 20 mg 05/15/23 17:30 Bisacodyl 5 Mg Tablet Ec PO 05/15/23 17:31 ONCE ONE Bupropion HCl 200 mg 05/12/23 21:00 05/15/23 10:39 Bupropion Hcl Sr (12hr) 100 Mg Tabcr PO 200 mg Q12HR KENNEDI Administration Buspirone HCl 10 mg 05/12/23 17:00 05/15/23 10:39 Buspirone Hcl 10 Mg Tablet PO 10 mg BID KENNEDI Administration Butorphanol Tartrate 1 spray 05/12/23 12:02 05/15/23 13:42 Butorphanol Nasal [place] (*Crx) 10 Mg/Ml 2.5 Ml NASAL 1 spray TID PRN Administration Pain Rated 5 or Less Cyclobenzaprine HCl 10 mg 05/12/23 12:02 05/15/23 10:42 Cyclobenzaprine Hcl 10 Mg Tablet PO 10 mg TID PRN Administration muscle spasm Enoxaparin Sodium 40 mg 05/13/23 09:00 05/15/23 10:40 Enoxaparin 40 Mg/0.4 Ml Syringe SUB-Q Not Given DAILY KENNEDI Estradiol 1 mg 05/13/23 09:00 05/15/23 10:41 Estradiol 1 Mg Tablet PO 1 mg DAILY KENNEDI Administration Hydromorphone HCl 0.5 mg 05/13/23 17:51 05/15/23 07:51 Hydromorphone Hcl Inj (*Crx) 1 Mg/Ml Syr IV PUSH 0.5 mg Q4H PRN Administration Pain Rated 7-10 Indomethacin 50 mg 05/12/23 13:00 05/15/23 13:36 Indomethacin 25 Mg Capsule
[2023-05-15] MEDS: BISACODYL 5 MG TABLET EC 20 MG PO (17:00)
[2023-05-15] MEDS: polyethylene glycoL 3350 238 GM BOTTLE PO (18:24)
--- NOTE | 2023-05-15 18:57 | PM.IMPN ---
Progress Note: A&P Assessment and Plan (1) Abnormal CT scan, small bowel: Code(s): R93.3 - Abnormal findings on diagnostic imaging of other parts of digestive tract Status: Acute (2) Intussusception of jejunum: Code(s): K56.1 - Intussusception Status: Acute (3) Sudden onset of severe abdominal pain: Code(s): R10.9 - Unspecified abdominal pain Status: Acute (4) Nausea vomiting and diarrhea: Code(s): R11.2 - Nausea with vomiting, unspecified; R19.7 - Diarrhea, unspecified Status: Acute (5) Abnormal computed tomography angiography (CTA) of abdomen: Code(s): R93.5 - Abnormal findings on diagnostic imaging of other abdominal regions, including retroperitoneum Status: Acute (6) Chronic inflammatory small bowel disease: Code(s): K52.9 - Noninfective gastroenteritis and colitis, unspecified Status: Acute (7) Leukocytosis: Code(s): D72.829 - Elevated white blood cell count, unspecified Status: Acute (8) Generalized anxiety disorder: Code(s): F41.1 - Generalized anxiety disorder Status: Chronic (9) Gastro-esophageal reflux disease without esophagitis: Code(s): K21.9 - Gastro-esophageal reflux disease without esophagitis Status: Acute (10) Major depressive disorder, recurrent, moderate: Code(s): F33.1 - Major depressive disorder, recurrent, moderate Status: Chronic Plan 1. Intussusception Resolved. Appreciate general surgery consultation from Dr. Arvizu and GI consultation from Dr. Underwood small bowel xr follow through negative for obstruction ctap with contrast for keerthi. am (presumably po contrast as well)- pt is npo for this pt now tolerating low fiber low residue diet potential for dc after study if negative zosyn has been discontinued 2. IBD vs irritable bowel disease vs infectious colitis Appreciate workup from GI f/u stool calprotectin, stool cx, c diff, crp/esr f/u ct ap with con tomorrow colonoscopy in near future per GI ct prn pain meds for abd pain potentially can f/u outpt for studies. If no GI coverage over the weekend, should f/u outpt if symptomatically better. 05/13: Terminal ileitis seen on CT a/p. Discussed pt with Dr. Arvizu from general surgery. He recommends pt is seen by GI on Monday. I will make pt npo on Monday in case she has a colonoscopy with biopsy on Monday. Ct iv dilaudid for abd pain. I let pt know she cannot go home on this. 05/15: Appreciate consultation from Dr. Underwood. Pt scheduled for colonoscopy for terminal ileitis seen on CT a/p. Pt taking bowel prep now. 3. Electrolyte abnormalities ca gluconate for ca repletion Time Spent With Patient Time: 30 min Subjective Date/time seen: 05/15/23 18:57 Interval history: stomach pain and cramping taking bowel prep. did not want any more blood tests. wanted v/s changed to q8hr. Exam Const: General: cooperative, comfortable, no acute distress, alert, awake and tired appearing Nutritional Appearance: underweight Orientation/consciousness: patient oriented x3 and No confusion HENMT: Head: normocephalic and atraumatic Mouth: Yes Normal oral and palatal mucosa present Eyes: Conjunctivae: conjunctivae normal Pupils: Equal, round and reactive pupils present EOM: EOMs intact bilaterally Neck: Neck: normal visual inspection, no lymphadenopathy and nontender Resp: Effort & Inspection: normal respiratory effort Auscultation: clear to auscultation bilaterally Cardio: Rate: regular rate Rhythm: regular rhythm Heart sounds: no gallops, no murmurs and no rubs GI: Inspection: non-distended, scaphoid and scar GI Palp: Yes Soft to palpation, Yes Tenderness to palpation present (GI) (Minimal tenderness, mostly lower abdomen.), No Guarding due to palpation present (GI), No Hepatosplenomegaly present, No Hepatomegaly present, No Splenomegaly present, No Hernia present, No Palpable mass present and No Rebound tenderness present Au
[2023-05-15 20:35] VITALS: BP 158/96; PULSE 66; RESP 18; TEMP 36.2; O2SAT 100
[2023-05-15 20:43] VITALS: BP 146/85
--- NOTE | 2023-05-15 23:10 | PC.NURSE ---
holding 2100 meds r/t N/V with bowel prep. Patient requests to take them in a few hours.
[2023-05-15] MEDS: traZODone HCL 50 MG TABLET 150 MG PO (23:34)
[2023-05-15] MEDS: MIRTAZAPINE 30 MG TABLET PO (23:34)
--- NOTE | 2023-05-15 23:51 | PC.NURSE ---
Patient had about 1/6th of bowel prep over about 5 hours and has been unable to tolerate consuming any more liquids. Patient is now adamantly refusing to continue bowel prep and refusing to have colonoscopy tomorrow. Procedure is scheduled for 1500 05/16, will notify provider at 0600 of patient decision to refuse procedure.
[2023-05-16] VITALS (8 sets, daily range): BP systolic 88–159; BP diastolic 62–97; PULSE 65–84; RESP 18–27; TEMP 36.2–36.8; O2SAT 98–100
[2023-05-16] MEDS: PROMETHAZINE HCL 25 MG/ML AMPUL 12.5 MG IV PUSH ×2 (00:01→16:28)
[2023-05-16] MEDS: SODIUM CHLORIDE 0.9% IV 50 ML 148 ML (00:06)
[2023-05-16] MEDS: LEVOTHYROXINE SODIUM 125 MCG TABLET PO (06:50)
[2023-05-16] MEDS: ONDANSETRON INJ 4 MG/2 ML VIAL IV PUSH (06:51)
[2023-05-16] MEDS: estradioL 1 MG TABLET PO (08:13)
[2023-05-16] MEDS: TOPIRAMATE 25 MG TABLET PO ×2 (08:14→21:48)
[2023-05-16] MEDS: PANTOPRAZOLE 40 MG TABLET PO (08:14)
[2023-05-16] MEDS: busPIRone HCL 10 MG TABLET PO ×2 (08:14→16:28)
[2023-05-16] MEDS: INDOMETHACIN 25 MG CAPSULE 50 MG PO ×2 (08:15→16:28)
[2023-05-16] MEDS: buPROPion HCL SR (12HR) 100 MG TABCR 200 MG PO ×2 (08:15→21:48)
--- NOTE | 2023-05-16 13:09 | PC.NURSE ---
To GI Lab via wheelchair. Family at bedside. Voiding without difficulty. Verbal report given to Binta EUBANKS.
[2023-05-16] MEDS: LACTATED RINGERS 1,000 ML 150 ML IV CONT (13:36)
--- NOTE | 2023-05-16 14:04 | WPDANESEPPF ---
Anes - Initial Pre Proc Eval Procedure: Operation Date: 05/16/23 15:00 Proposed Procedures p Colonoscopy - Antony Penaloza MD Operation Date: 05/16/23 16:00 Proposed Procedures p Esophagogastroduodenoscopy - Antony Penaloza MD Date/Time: 05/16/23 14:04 Surgeon: Dain Renteria MD Pre Op Diagnosis: Intussusception of Jejunum Patient Data Age: 63 Gender: F Height: 1.63 m Weight: 45 kg Last Vital Signs Temp 98.2 F 05/16/23 13:31 Pulse 84 05/16/23 13:31 Resp 18 05/16/23 13:31 BP 159/97 H 05/16/23 13:31 Pulse Ox 100 05/16/23 13:31 O2 Del Method Room Air 05/16/23 13:31 Allergies Allergy/AdvReac Type Severity Reaction Status Date / Time Sulfa (Sulfonamide Allergy Severe Swelling Verified 05/16/23 13:30 Antibiotics) codeine Allergy Mild stomach Verified 05/16/23 13:30 upset; hangover feeling morphine AdvReac Intermediate Itching Verified 05/16/23 13:30 Home Medications Medication Instructions Recorded Confirmed Type buspirone 10 mg tablet 10 mg PO BID #60 tabs 10/26/22 05/12/23 Rx medroxyprogesterone 2.5 mg tablet 2.5 mg PO DAILY #90 tabs 10/26/22 05/12/23 Rx estradiol 1 mg tablet 1 mg PO DAILY #90 tabs 12/13/22 05/12/23 Rx bupropion HCl 200 mg tablet,12 hr 200 mg PO BID #180 tabs 01/02/23 05/12/23 Rx sustained-release (Wellbutrin SR) pantoprazole 40 mg tablet,delayed 40 mg PO BID #180 tabs 01/05/23 05/12/23 Rx release pentazocine 50 mg-naloxone 0.5 mg 1 tablet PO Q4-6H PRN pain #120 01/11/23 05/12/23 Rx tablet tabs cyclobenzaprine 10 mg tablet 10 mg PO TID PRN muscle spasm #60 01/26/23 05/12/23 Rx tabs lorazepam 0.5 mg tablet 0.5 mg PO BID PRN anxiety #60 tabs 02/02/23 05/12/23 Rx indomethacin 50 mg capsule 50 mg PO TID #270 caps 02/06/23 05/12/23 Rx topiramate 50 mg tablet 25 mg PO BID #30 tabs 02/22/23 05/12/23 Rx ondansetron 4 mg disintegrating 4 mg PO Q6H PRN nausea and 03/15/23 05/12/23 Rx tablet vomiting #270 tabs butorphanol 10 mg/mL nasal spray 1 spray intranasal TID PRN pain #5 04/21/23 05/12/23 Rx mL biotin 1,000 mcg chewable tablet 1,000 mcg PO DAILY 05/12/23 05/12/23 History levothyroxine 125 mcg tablet 125 mcg PO DAILY 05/12/23 05/12/23 History mirtazapine 30 mg tablet 30 mg PO HS 05/12/23 05/13/23 History trazodone 150 mg tablet 150 mg PO HS 05/12/23 05/12/23 History Patient hx anesthesia problems: none Family hx anesthesia problems: none Results Review: All pre-operative results and documents have been reviewed as part of the pre-operative evaluation. [facility] Past Medical History Medical History Abnormal CT scan, small bowel History of follicular lymphoma 2009 Surgical History Surgical History History of appendectomy History of section Family History Family History Father Hypertension Heart disease Diabetes mellitus Mother Depression Heart disease Thyroid disorder Hypertension Sibling Depression Thyroid disorder Social History Social History Years smoked: 40 Smoking status: Former smoker Second hand tobacco smoke exposure: No Smoking end date: 06/19/19 Alcohol intake: current Drinks per week: 4 Substance use: current Substance use type: marijuana Other substance usage details: daily use Last use: 05/11/23 Lack of Transportation: No Lack of Food: Never True Current Housing: I Have Housing Concerned About Future Housing: No Difficulty Paying Gas/Electric Bills: YES Difficulty Paying for Meds: No Currently Unemployed: No Education: High School Diploma/GED Difficulty w/ Childcare or Family Care: No Living arrangements: with family Occupation/Education: unemployed Gender identity (if verbalized by the patient): Fe
--- NOTE | 2023-05-16 15:00 | PC.NURSE ---
Returned from GI Lab via stretcher. Family at bedside.
--- NOTE | 2023-05-16 17:32 | PM.IMPN ---
Progress Note: A&P Assessment and Plan (1) Intussusception of jejunum: Code(s): K56.1 - Intussusception Status: Acute (2) Generalized anxiety disorder: Code(s): F41.1 - Generalized anxiety disorder Status: Chronic Plan intussusception resolved. EGD negative for acute findings. suspect her complaint of food not being able to pass is largely related to anxiety. she is having psychiatry consultation soon for ketamine or lsd application, reported by the patient. she is, however, able to swallow and ingest a smooth brought by her family member without issue. she refuses bowel prep/colonoscopy. if can tolerate diet home tomorrow with outpatient follow up Subjective Date/time seen: 05/16/23 17:32 Interval history: pt refused blood draws and colonoscopy/bowel prep. she complains of anxiety and bad tasting hospital food which is causing her to have food not pass or be causing nausea Review of Systems Review of Systems: All systems reviewed & are unremarkable except as noted in HPI and below Exam Const: General: comfortable and no acute distress Eyes: Pupils: Equal, round and reactive pupils present Resp: Effort & Inspection: normal respiratory effort Auscultation: clear to auscultation bilaterally Cardio: Rate: regular rate Rhythm: regular rhythm Heart sounds: no gallops, no murmurs and no rubs GI: GI Palp: Yes Soft to palpation and No Tenderness to palpation present (GI) Extrem: General: no edema Psych: Affect: Anxious affect present Objective Data Vital Signs Vital Signs: Vital Signs - 24 hr 05/15/23 20:35 05/15/23 20:43 05/16/23 08:00 Temperature 97.2 F L Pulse Rate 66 Respiratory Rate 18 18 Blood Pressure 158/96 H 146/85 H Pulse Oximetry 100 100 Oxygen Delivery Room Air 05/16/23 13:31 05/16/23 14:30 05/16/23 14:40 Temperature 98.2 F Pulse Rate 84 71 77 Respiratory Rate 18 27 H 24 H Blood Pressure 159/97 H 88/62 L 130/89 Pulse Oximetry 100 100 100 Oxygen Delivery Room Air Room Air Room Air 05/16/23 14:50 05/16/23 15:05 05/16/23 15:23 Temperature 97.2 F L Pulse Rate 77 65 Respiratory Rate 19 18 18 Blood Pressure 135/92 H 130/71 Pulse Oximetry 100 100 98 Oxygen Delivery Room Air Room Air Intake/Output Intake/Output: Intake & Output 05/13/23 05/14/23 05/15/23 05/16/23 23:59 23:59 23:59 23:59 Intake Total 2840 710 1130 680 Balance 2840 710 1130 680 Meds/Results Medications: Active Medications Generic Name Dose Route Start Last Admin Trade Name Freq PRN Reason Stop Dose Admin Bupropion HCl 200 mg 05/12/23 21:00 05/16/23 08:15 Bupropion Hcl Sr (12hr) 100 Mg Tabcr PO 200 mg Q12HR KENNEDI Administration Buspirone HCl 10 mg 05/12/23 17:00 05/16/23 16:28 Buspirone Hcl 10 Mg Tablet PO 10 mg BID KENNEDI Administration Butorphanol Tartrate 1 spray 05/12/23 12:02 05/16/23 16:51 Butorphanol Nasal [place] (*Crx) 10 Mg/Ml 2.5 Ml NASAL 1 spray TID PRN Administration Pain Rated 5 or Less Cyclobenzaprine HCl 10 mg 05/12/23 12:02 05/15/23 10:42 Cyclobenzaprine Hcl 10 Mg Tablet PO 10 mg TID PRN Administration muscle spasm Enoxaparin Sodium 40 mg 05/13/23 09:00 05/16/23 08:15 Enoxaparin 40 Mg/0.4 Ml Syringe SUB-Q Not Given DAILY KENNEDI Estradiol 1 mg 05/13/23 09:00 05/16/23 08:13 Estradiol 1 Mg Tablet PO 1 mg DAILY KENNEDI Administration Hydromorphone HCl 0.5 mg 05/13/23 17:51 05/15/23 07:51 Hydromorphone Hcl Inj (*Crx) 1 Mg/Ml Syr IV PUSH 0.5 mg Q4H PRN Administration Pain Rated 7-10 Indomethacin 50 mg 05/12/23 13:00 05/16/23 16:28 Indomethacin 25 Mg Capsule PO 06/11/23 12:59 50 mg TID KENNEDI Administration Levothyroxine Sodium 125 mcg 05/13/23 06:30 05/16/23 06:50 Levothyroxine Sodium 125 Mcg Tablet PO 125 mcg DAILY@0630 KENNEDI Administration Lorazepam 0.5 mg 05/12/23 12:02 05/15/23 08:00 Lorazepam (*Crx) 0.5 Mg Tablet PO 0.5 mg BID
[2023-05-16] MEDS: traZODone HCL 50 MG TABLET 150 MG PO (21:48)
[2023-05-16] MEDS: MIRTAZAPINE 30 MG TABLET PO (21:48)
[2023-05-16] MEDS: LORazepam (*CRX) 0.5 MG TABLET PO (21:56)
[2023-05-16] MEDS: ACETAMINOPHEN 325 MG TABLET 650 MG PO (22:50)
[2023-05-17] MEDS: LEVOTHYROXINE SODIUM 125 MCG TABLET PO (06:00)
[2023-05-17] MEDS: INDOMETHACIN 25 MG CAPSULE 50 MG PO (08:19)
[2023-05-17] MEDS: PANTOPRAZOLE 40 MG TABLET PO (08:20)
[2023-05-17] MEDS: estradioL 1 MG TABLET PO (08:20)
[2023-05-17] MEDS: buPROPion HCL SR (12HR) 100 MG TABCR 200 MG PO (08:20)
[2023-05-17] MEDS: TOPIRAMATE 25 MG TABLET PO (08:20)
[2023-05-17] MEDS: busPIRone HCL 10 MG TABLET PO (08:20)
[2023-05-17] MEDS: LORazepam (*CRX) 0.5 MG TABLET PO (09:35)
[2023-05-17] MEDS: ONDANSETRON INJ 4 MG/2 ML VIAL IV PUSH (10:30)
[2023-05-17 10:38] VITALS: BP 152/95; PULSE 72; RESP 16; TEMP 36.4; O2SAT 100
--- NOTE | 2023-05-17 10:56 | PM.DS ---
DS: Admitting Diagnosis Discharge Date 05/17/23 Admitting Diagnosis Intussusception DS: Discharge Diagnosis Discharge Diagnosis (1) Abnormal CT scan, small bowel: Code(s): R93.3 - Abnormal findings on diagnostic imaging of other parts of digestive tract Status: Acute (2) Sudden onset of severe abdominal pain: Code(s): R10.9 - Unspecified abdominal pain Status: Acute (3) Nausea vomiting and diarrhea: Code(s): R11.2 - Nausea with vomiting, unspecified; R19.7 - Diarrhea, unspecified Status: Acute (4) Chronic inflammatory small bowel disease: Code(s): K52.9 - Noninfective gastroenteritis and colitis, unspecified Status: Acute (5) Generalized anxiety disorder: Code(s): F41.1 - Generalized anxiety disorder Status: Chronic DS: Summary Hospital Course Hospital Course: 63F w/ PMH anxiety presented via [facility] to [facility] with enteroenteric intussusception in the left upper quadrant. It resolved, as did her abdominal pain. Imaging also revealed findings consistent with chronic inflammatory bowel disease such as Crohn's. GI was consulted, patient was not able to tolerate bowel prep and declined colonoscopy. She wants to have it done as outpatient. Otherwise, she complained of dysmotility, nausea and vomiting. She underwent EGD which was essentially normal. Her food tolerance varies greatly with the level of her anxiety and different foods. She has had this problem for a long time now. On day of discharge, 05/17 she is able to tolerate foods w/o any vomiting and is stable to return home. She and her are wanting to find a GI doctor for colonoscopy and will ask their PCP for referral. Prior to admission she was taking zofran, but that did not help during admission and she is discharged on 5 prn tabs of promethazine hcl. She tolerated it inpatient without side effects, and was given a short course, explained the side effects to which they acknowledge and still wanted it PRN and know to contact PCP or ER if she experiences any. Pt remains full code during her stay. More than 30 minutes spent on discharge planning and documentation. Time Spent with Patient Time attestation: Total time spent providing and/or coordinating discharge services: Exam Const: General: cooperative and no acute distress Resp: Effort & Inspection: normal respiratory effort Auscultation: clear to auscultation bilaterally Cardio: Rate: regular rate Rhythm: regular rhythm Heart sounds: S1 normal heart sound present and S2 normal heart sound present GI: GI Palp: No abdominal tenderness Auscultation: normal bowel sounds DS: Data Data Completed and Pending Pending studies at discharge: Pending at discharge 05/16/23 14:26 Surgical [PTH] Routine Discharge Plan Discharge Attending physician on discharge: Jocelynn Carlos Consulting providers: Antony Penaloza Discharging Clinician: Jocelynn Carlos Patient Disposition: Home, Self-Care Activity: october shower Diet: regular Stand Alone Forms: General Discharge Information Follow-up/Referrals: Cristo Sprague MD [Primary Care Provider] - (follow up on GI issues, referral to GI) Discharge Medications: New promethazine 12.5 mg tablet 12.5 mg PO TID PRN (Reason: nausea and vomiting) Qty: 5 0RF Continued buspirone 10 mg tablet 10 mg PO BID Qty: 60 5RF medroxyprogesterone 2.5 mg tablet 2.5 mg PO DAILY Qty: 90 3RF ondansetron 4 mg tablet,disintegrating 4 mg PO Q6H PRN (Reason: nausea and vomiting) Qty: 270 2RF biotin 1,000 mcg Tablet,Chewable 1,000 mcg PO DAILY mirtazapine 30 mg tablet 30 mg PO HS trazodone 150 mg tablet 150 mg PO HS levothyroxine 125 mcg tablet 125 mcg PO DAILY estradiol 1 mg tablet 1 mg PO DAILY Qty: 90 1RF bupropion HCl [Wellbutrin SR] 200 mg tablet sustained-release 12 hr 200 mg PO BID Qt
[2023-05-20 19:27] LABS: Calprotectin, Stool 48 mcg/g
== END 2023-05-17 12:22 | disposition home or self-care (01) | DRG 389 ==
PROVIDERS: Internal Medicine Gastroenterology; Admitting Provider Family Medicine; PCP Family Medicine Adolescent Medicine; Visit Provider General Practice
PROC: 0DJ08ZZ Inspection of Upper Intestinal Tract, Via Natural or Artificial Opening Endoscopic (ICD-10-PCS; CPT 43235; principal; 2023-05-16 16:00)
DX: K56.1 Intussusception (principal); F33.1 Major depressive disorder, recurrent, moderate; K52.9 Noninfective gastroenteritis and colitis, unspecified; K21.9 Gastro-esophageal reflux disease without esophagitis; E03.9 Hypothyroidism, unspecified; G43.709 Chronic migraine without aura, not intractable, without status migrainosus; F12.90 Cannabis use, unspecified, uncomplicated; F41.1 Generalized anxiety disorder; Z87.891 Personal history of nicotine dependence; Z85.72 Personal history of non-Hodgkin lymphomas
CPT/HCPCS: 36415; 74177; 74250; 80048; 80053; 81001; 83735; 83993; 84100; 85025; 85652; 86140; 87045; 87427; 87449; 87493; 88305; A9270; J0613; J1170; J2405; J2543; J2550; J2704; J3475; J7120; Q9967

== ENCOUNTER 2025-05-05 14:10 | Outpatient (CLI) | payer MEDICARE, SELFPAY ==
[2025-05-05 15:49] LABS: Alanine Aminotransferase 13 U/L (6-35); Albumin Level 4.2 g/dL (3.5-5.1); Alkaline Phosphatase 84 U/L (38-126); Anion Gap 9 mmol/L (4-12); Aspartate Amino Transferase 31 U/L (14-36); Bilirubin,Total 0.3 mg/dL (0.2-1.3); Blood Urea Nitrogen 12 mg/dL (7-17); Calcium 8.8 mg/dL (8.4-10.2); Carbon Dioxide 24 mmol/L (22-30); Chloride 106 mmol/L (98-107); Cholesterol 205 mg/dL (0-200); Estimated Glomerular Filt Rate 51; Glucose 65 mg/dL (65-110); HDL Direct 93 mg/dL; Potassium 4.4 mmol/L (3.4-5.0); Sodium 139 mmol/L (137-145); Total Protein 7.5 g/dL (6.3-8.2); Triglycerides 67 mg/dL (<150)
[2025-05-05 16:24] LABS: Thyroid Stimulating Hormone < 0.015 uIU/mL (0.465-4.680)
== END 2025-05-05 14:11 | disposition home or self-care (01) ==
PROVIDERS: PCP Family Medicine Adolescent Medicine; Visit Provider Family Medicine Adolescent Medicine
DX: E03.9 Hypothyroidism, unspecified (principal); I10 Essential (primary) hypertension; G43.709 Chronic migraine without aura, not intractable, without status migrainosus; F41.1 Generalized anxiety disorder; Z13.220 Encounter for screening for lipoid disorders
CPT/HCPCS: 36415; 80053; 80061; 84443